=== PATIENT | male | born 1955 | race Caucasian/White ===

== ENCOUNTER → 2017-08-27 | Outpatient (CLI) | payer MEDICARE ==
[~2017-08-27] MED LIST: BUPR300T PO; CARI350T19 PO; CLON0.5T PO; DONE10TA14 PO; DONE10TA7 PO; DULO1CAP3 PO; FLON0.053; FLUT50SP EACH NARE; GABA400C5 PO; HYDR-2768 PO; HYDR-3129 PO; HYDR-3583 PO; HYDR25TA5 PO; LANS30 OR; LISI2.5T3 PO; LISI30TA4 PO; MAXA10TA2 PO; PANT40TA3 PO; PAXI20TA PO; PROP20TA3 PO; PROP40TA3 PO; REFRDRO EACH EYE; SOMA350T PO; TAMS0.4C4 PO; TIOT18I INH; TRAZ1TAB14 PO
[2017-08-27 09:45] LABS: AUTOMATED NEUTROPHIL # 3.5 TH/MM3 (1.8-7.7); BASOPHIL % 0.7 % (0.0-2.0); EOSINOPHIL # 0.2 TH/MM3 (0-0.4); EOSINOPHIL % 3.3 % (0.0-4.0); HEMATOCRIT 40.5 % (39.0-51.0); LYMPH % 28.8 % (9.0-44.0); LYMPHOCYTE # 1.7 TH/MM3 (1.0-4.8); MEAN CELL VOLUME 94.1 FL (80.0-100.0); MEAN CORPUSCULAR HEMOGLOBIN 32.4 PG (27.0-34.0); MEAN CORPUSCULAR HGB CONC 34.5 % (32.0-36.0); MONO % 7.8 % (0.0-8.0); MONOCYTE # 0.5 TH/MM3 (0-0.9); NEUT % 59.4 % (16.0-70.0); PLATELET COUNT 204 TH/MM3 (150-450); RED BLOOD COUNT 4.31 MIL/MM3 (4.50-5.90)
[2017-08-27 09:50] LABS: PROTHROMBIN TIME - PATIENT 10.5 SEC (9.8-11.6)
[2017-08-27 10:14] LABS: ALBUMIN 3.4 GM/DL (3.4-5.0); ALT (GPT) 45 U/L (12-78); AST (GOT) 30 U/L (15-37); BICARBONATE 27.6 MEQ/L (21.0-32.0); BLOOD UREA NITROGEN 13 MG/DL (7-18); CALCIUM 8.5 MG/DL (8.5-10.1); CHLORIDE 110 MEQ/L (98-107); CREATININE 0.84 MG/DL (0.60-1.30); GLOMERULAR FILTRATION RATE 92 ML/MIN (>89); GLUCOSE,FASTING 91 MG/DL (74-99); SODIUM (NA) 143 MEQ/L (136-145)
[2017-08-27 10:16] LABS: ALKALINE PHOSPHATASE 76 U/L (45-117); TOTAL BILIRUBIN ADULT 0.8 MG/DL (0.2-1.0)
[2017-08-27 10:25] LABS: BILIRUBIN, URINE NEG (NEG); BLOOD, URINE NEG (NEG); GLUCOSE,URINE NEG (NEG); KETONE, URINE NEG (NEG); MUCUS URINE MANY /lpf (OCC); NITRITE,URINE NEG (NEG); URINE COLOR YELLOW (YELLW/STRAW); URINE LEUKOCYTE ESTERASE NEG (NEG)
== END ==
LOC: CPRE 08:36
PROVIDERS: ATTEND Surgery
DX: Z01.812 Encounter for preprocedural laboratory examination (principal)
CPT/HCPCS: 36415; 80053; 81001; 85025; 85610; 85730

== ENCOUNTER 2017-09-06 10:44 | Inpatient (IN) | payer MEDICARE ==
--- NOTE | 2017-09-03 16:00 | MH ---
cc: Jonn FALL M.D. DATE OF ADMISSION 09/06/2017 ADMISSION DIAGNOSIS Osteoarthritic degeneration right knee now being admitted for right total knee arthroplasty. HISTORY OF THE PRESENT ILLNESS This is pleasant 62-year-old male is being admitted today for right total knee arthroplasty due to severe painful osteoarthritic degeneration. PAST MEDICAL HISTORY Other past history: 1. The patient has been long-term history of pain medications for fibromyalgia and back pain and currently is taking Medical marijuana, hydrocodone, trazodone and lisinopril. 2. Also has a history of anxiety. 3. Hypertension for which he takes lisinopril. REVIEW OF SYSTEMS Previous review of symptoms noncontributory. FAMILY HISTORY Noncontributory. PAST SURGICAL HISTORY Past surgery includes: 1. Surgery on his eyes. 2. Surgery on his hands. 3. Surgery on his finger. 4. His upper back. 5. Hernia. 6. And his nose. SOCIAL HISTORY He does not smoke. He does not drin. ALLERGIES NO KNOWN ALLERGIES. PHYSICAL EXAMINATION GENERAL: We find a 62-year-old male well-developed, well-nourished, alert and oriented times three complaining of pain in his right knee. VITAL SIGNS: Blood pressure 150/82, pulse 57 and regular, respirations 16, temperature 97.8, pulse oximetry 96% on room air. HEENT: Eyes PERRL, EOMI. Ears, nose, mouth clear. NECK: Supple. LUNGS: Clear. HEART: Regular rate. ABDOMEN: Soft. Positive bowel sounds and nontender. EXTREMITIES: Reveal his right knee to have crepitance on range of motion, lacks 5 degrees short of full extension. He is neurovascularly intact to his toes. IMPRESSION At this time is severe, painful, osteoarthritic degeneration of the right knee. PLAN Admission for right total knee arthroplasty today. The patient given a prescription for postoperative pain and anticoagulation control in the office and plans on going home after surgical stay in the hospital. Jonn Fall MD JRPrincess/KK /3:48 PM /3:41 PM
[~2017-09-06] VITALS: Ht 180.3 cm; Wt 104.0 kg
[~2017-09-06 10:44] MED LIST changes: -BUPR300T PO; -CARI350T19 PO; -CLON0.5T PO; -DONE10TA14 PO; -FLON0.053; -HYDR-2768 PO; -HYDR-3129 PO; -LANS30 OR; -LISI2.5T3 PO; -MAXA10TA2 PO; -PAXI20TA PO; -PROP20TA3 PO; -SOMA350T PO; -TIOT18I INH
[2017-09-06] MEDS ORDERED: ceFAZolin 2 GM PREMIX 50 ML IV SCH (11:15)
[2017-09-06] MEDS ORDERED: VANCOMYCIN 1000 MG/NS 250 ML (for <70 kg) IV SCH ×2 (11:15)
[2017-09-06] MEDS ORDERED: CHLORHEXIDINE GLUCONATE 4% SOLN 120 ML BTL TOPICAL SCH (11:15)
[2017-09-06] MEDS ORDERED: CHLORHEXIDINE GLUCONATE 2 % 1 PACK (2 CLOTHS) TOPICAL PRN (11:30)
[2017-09-06] MEDS ORDERED: LACTATED RINGER'S 1000 ML IV PRN (11:30)
[2017-09-06] MEDS ORDERED: METOPROLOL TARTRATE 25 MG TAB PO PRN (11:30)
[2017-09-06] MEDS ORDERED: POVIDONE IODINE 5% (ANTISEPSIS KIT) 4 APPLICATIONS EACH NARE PRN (11:30)
[2017-09-06] MEDS ORDERED: SODIUM CHLORID 0.9% 500 ML IV PRN (11:30)
[2017-09-06] MEDS ORDERED: TRANEXAMIC ACID INJ 0 MG in SODIUM CHLORIDE 0.9% INJ 100 ML IV SCH (12:00)
[2017-09-06] MEDS ORDERED: GLYCOPYRROLATE 1 MG/5 ML SYRINGE IV PUSH ONE (12:00)
[2017-09-06] MEDS ORDERED: ePHEDrine/NS 25 MG/5 ML SYRINGE IV ONE (12:00)
[2017-09-06] MEDS ORDERED: TRANEXAMIC ACID IV SCH ×2 (12:00→15:00)
[2017-09-06] MEDS ORDERED: PHENYLEPHRINE HCL 10 MG/ML VIAL IV ONE (12:00)
[2017-09-06] MEDS ORDERED: BUPIVACAINE LIPOSO PF 1.3% INJ 20 ML in SODIUM CHLORIDE 0.9% INJ 100 ML P-ARTICULR SCH (12:00)
[2017-09-06] MEDS ORDERED: ONDANSETRON HCL 4 MG/2 ML VIAL IV ONE (12:00)
[2017-09-06] MEDS ORDERED: LIDOCAINE HCL 1% PF 5 ML SYRINGE OTHER ONE (12:00)
[2017-09-06] MEDS ORDERED: SODIUM CHLORIDE 0.9% IV SCH ×2 (12:00→15:00)
[2017-09-06] MEDS ORDERED: DEXAMETHASONE SOD PHOS 4 MG/ML VIAL IV ONE (12:00)
[2017-09-06] MEDS ORDERED: NALOXONE HCL 0.4 MG/ML AMP IV PUSH PRN (12:00)
[2017-09-06] MEDS ORDERED: Post-op Orders (for Pharmacy) XX ONE (12:00)
[2017-09-06] MEDS ORDERED: LACTATED RINGER'S 1000 ML INJ 2,000 ML IV ONE (12:00)
[2017-09-06] MEDS ORDERED: PROPOFOL 200 MG/20 ML AMP IV ONE (12:00)
[2017-09-06] MEDS ORDERED: PHENYLEPH/NS 1000 MCG/10 ML SYR IV ONE (12:00)
[2017-09-06] MEDS ORDERED: ONDANSETRON HCL 4 MG/2 ML VIAL IVP PRN (12:00)
--- NOTE | 2017-09-06 12:06 | HHI.FF ---
Face to Face Verification Diagnosis: (1) Status post total right knee replacement using cement Physical Therapy Gait training Knee: Total knee, Protocol: Right, Gait training, Full weight bearing Canvas Knee Splint: When in bed & 2 pillows btw thighs Nursing RN: 3 days/week x 2 weeks Nursing: Dressing changes Dressing Changes: Daily dressing change, 4x4s, Gauze, Paper tape I have seen patient Perez Ramirez on 09/06/17. My clinical findings support the need for the requested home health care services because: Limited ability to care for self High risk of falls I certify that my clinical findings support that this patient is homebound because: Unsteady gait/balance Jonn Fall MD Sep 06, 2017 12:06
[2017-09-06] MEDS ORDERED: ADJUSTABLE COMM1 MIS (12:08)
[2017-09-06] MEDS ORDERED: CPMMACHINE (12:08)
[2017-09-06] MEDS ORDERED: WALKER WHEELS/F1 MIS (12:08)
[2017-09-06] MEDS ORDERED: DEXAMETHASONE SOD PHOS 20 MG/5 ML VIAL ONE (12:21)
[2017-09-06] MEDS ORDERED: DEXAMETHASONE SOD PHOS 20 MG/5 ML VIAL IV PUSH SCH (13:00)
[2017-09-06] MEDS ORDERED: BUPIVACAINE LIPOSOME PF 1.3% 20 ML VIAL ONE (13:03)
--- NOTE | 2017-09-06 13:47 | PD.CONS ---
HPI Service [facility] Hospitalists Consult Requested By Dr. Fall Reason for Consult Postoperative medical management Primary Care Physician Kavitha Thomson Jr, MD Diagnoses: (1) Osteoarthritis of right knee History of Present Illness This 62-year-old male patient with past medical history which includes hypertension, chronic pain including fibromyalgia and back pain. Patient is currently a medical marijuana for his chronic pain, followed by Dr. Villa. Patient presented to the hospital on 09/06/2017 underwent a right total knee arthroplasty with Dr. Fall. We've been consulted for assistance with postoperative medical management. Patient groggy post anesthesia information gathered from patient and prior charting. Patient endorses post-operative pain. He has just been medicated for pain. Patient denies N/V, SOB or chest pain. 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, cluster a personality disorder, PTSD, Past Surgical History Cervical fusion, lumbar fusion, cataract surgery, colonoscopy with polypectomy, Lasix surgery left eye, EGD, foot surgery, hand surgery, inguinal hernia repair , decompression of medial nerve, umbilical hernia repair Reported Medications Trazodone (Trazodone HCl) 150 Mg Tablet 150 Mg PO HS Tamsulosin (Tamsulosin HCl) 0.4 Mg Cap 0.4 Mg PO EVERY OTHER DAY Refresh Opth Drops (Polyvinyl Alcohol-Povidone Opth Drops) 1.4-0.6% Drops 1-2 Drop EACH EYE PRN PRN Propranolol (Propranolol HCl) 40 Mg Tab 40 Mg PO Q8HR Pantoprazole (Pantoprazole Sodium) 40 Mg Tab 40 Mg PO DAILY Lisinopril 30 Mg Tab 30 Mg PO DAILY Hydrocodone-Acetaminophen 10-325 mg Tab 1 Tab PO Q6H PRN Hydrochlorothiazide 25 Mg Tab 25 Mg PO DAILY Gabapentin 400 Mg Cap 4 Tab PO HS Fluticasone Nasal [place]ison 50 Mcg/Act Naspr 50 Mcg EACH NARE BID 50 mcg/spray Duloxetine DR (Duloxetine HCl) 60 Mg Capdr 60 Mg PO DAILY Donepezil 10 Mg Tab 10 Mg PO HS Allergies: Coded Allergies: [place] Dust (Verified Allergy, Unknown, 09/06/17) mirtazapine (Verified Allergy, Unknown, 09/06/17) pollen extracts (Verified Allergy, Unknown, 09/06/17) Active Ordered Medications Current Medications Medications (Trade) Dose Ordered Sig/Ricardo Route Start Time Stop Time Status Last Admin (Hibiclens 4% Top Soln) 1 applic ONCE TOPICAL 09/06/17 11:15 09/09/17 11:14 Cefazolin Sodium/ Dextrose 50 ml @ 100 mls/hr [employer] IV 09/06/17 11:15 09/09/17 11:14 Vancomycin HCl 1000 mg/Sodium Chloride 250 ml @ 250 mls/hr [employer] IV 09/06/17 11:15 09/09/17 11:14 Tranexamic Acid 1040 mg/Sodium Chloride 110.4 ml @ 200 mls/hr ONCE IV 09/06/17 12:00 09/06/17 18:00 Tranexamic Acid 1040 mg/Sodium Chloride 110.4 ml @ 200 mls/hr ONCE IV 09/06/17 15:00 09/06/17 21:00 Bupivacaine Liposome 20 ml/ Sodium Chloride 120 ml @ 240 mls/hr ONCE P-ARTICULR 09/06/17 12:00 09/06/17 18:00 Lactated Ringer's 1,000 ml @ 30 mls/hr Q24H PRN IV 09/06/17 11:30 09/09/17 11:29 Sodium Chloride 500 ml @ 30 mls/hr [id number] PRN IV 09/06/17 11:30 09/09/17 11:29 (Lopressor) 25 mg [employer] PRN PO 09/06/17 11:30 09/09/17 11:29 09/06/17 12:00 (Betadine 5% Antisepsis Kit) 1 applic [employer] PRN EACH NARE 09/06/17 11:30 09/09/17 11:29 (Chlorhexidine 2% Cloth) 3 pack [employer] PRN TOPICAL 09/06/17 11:30 09/09/17 11:29 (Aricept) 10 mg HS PO 09/06/17 21:00 (Cymbalta Dr) 60 mg DAILY PO 09/07/17 09:00 (Flonase Valeriy Spr) 1 spray BID EACH NARE 09/06/17 21:00 (Neurontin) 1,600 mg HS PO 09/06/17 21:00 UNV (Hydrodiuril) 25 mg DAILY PO 09/07/17 09:00 (Protonix) 40 mg DAILY PO 09/07/17 09:00 (Refresh Classic 1.4-0.6% Pf Opth Soln) 2 drop DAILY PRN EACH EYE 09/06/17 12:00 UNV (Inderal) 40 mg Q8HR PO 09/06/17 14:00 UNV (Flomax) 0.4 mg EVERY OTHER DAY PO 09/08/17 09:00 UNV Non-Formulary Medication 30 mg DAILY PO 09/07/17 09:00 UNV Non-Formulary Medication 150 mg HS PO 09/06/17 21:00 UNV Lactated Ringer's 1,000 ml @ 80 mls/hr [id number] IV 09/06/17 11:59 UNV Cefazolin Sodium 1000 mg/Sodium Chloride 100 ml @ 200 mls/hr Q6H IV 09/06/17 12:00 09/07/17 00:29 UNV (Post-op Orders (for Pharmacy)) STAT ONCE XX 09/06/17 12:00 09/06/17 12:01 UNV (Tylenol) 650 mg Q6H PRN PO 09/06/17 12:00 UNV Tranexamic Acid / Sodium Chloride 100 ml @ 200 mls/hr UNSCH IV 09/06/17 12:00 09/06/17 12:29 UNV (Theragran M Tab) 1 tab BID PO 09/07/17 21:00 11/06/17 20:59 UNV (Zofran Inj) 4 mg Q6H PRN IVP 09/06/17 12:00 UNV (Colace) 100 mg BID PO 09/07/17 21:00 UNV (Bacitracin Oint Packet) 0.9 gm UNSCH X1 PRN TOP 09/08/17 10:15 09/10/17 10:14 UNV (Narcan Inj) 0.4 mg UNSCH PRN IV PUSH 09/06/17 12:00 UNV (Benadryl Inj) 25 mg Q6H PRN IV PUSH 09/06/17 12:00 UNV (Eliquis) 2.5 mg BID PO 09/06/17 21:00 UNV (Morphine Inj) 4 mg Q3H PRN IV PUSH 09/06/17 12:00 UNV (Percocet 10-325 Mg) 1 tab Q4H PRN PO 09/06/17 12:00 UNV (Percocet 10-325 Mg) 2 tab Q4H PRN PO 09/06/17 12:00 UNV (Decadron Inj) 10 mg [employer] IV PUSH 09/06/17 13:00 09/07/17 12:59 Family History 67-year-old brother has prostate throat cancer Father in his 70s with dementia Social History Denies EtOH use or illicit drug use however patient does take medical THC Physical Exam Vital Signs Vital Signs Date Time Temp Pulse Resp B/P (MAP) Pulse Ox O2 Delivery O2 Flow Rate FiO2 09/06/17 11:44 98.0 74 16 158/91 (113) 97 Physical Exam GENERAL: This is a 62 year old male patient, well-developed patient, in no apparent distress. SKIN: Postoperative dressing dry and intact HEAD: Atraumatic. Normocephalic. No temporal or scalp tenderness. EYES: Extraocular motions intact. No scleral icterus. No injection or drainage. CARDIOVASCULAR: Regular rate and rhythm RESPIRATORY: Clear to auscultation. Breath sounds equal bilaterally. GASTROINTESTINAL: Abdomen soft, non-tender, nondistended. MUSCULOSKELETAL: Extremities without clubbing, cyanosis, or edema. No joint tenderness, effusion, or edema noted. No calf tenderness. Negative Homans sign bilaterally. NEUROLOGICAL: Awake and alert. No focal deficits appreciated. Five out of 5 muscle strength in all muscle groups, with the exception of postoperative right lower extremity. Normal speech. Assessment and Plan Problem List: (1) Osteoarthritis of right knee ICD Codes: M17.11 - Unilateral primary osteoarthritis, right knee Status: Acute Plan: Osteoarthritis right knee Patient underwent a right total knee arthroplasty with Dr. Fall 09/06/2017 Postoperative pain management with [employer] MANAGER Anticoagulation with Eliquis 2.5 mg by mouth twice a day per orthopedic surgery Physical therapy consulted COPD Does not take inhalers at home will order Duonebs needed while in the hospital Incentive spirometer Hypertension Continue patient's home lisinopril 30 mg by mouth daily and propranolol 40 mg by mouth every 8 hours BPH continue patient's home tamsulosin Depression/anxiety Duloxetine 60 mg by mouth daily Trazodone 150 mg by mouth daily at bedtime GERD Continue patient's home pantoprazole 40 mg by mouth daily (2) Chronic pain ICD Codes: G89.29 - Other chronic pain Status: Chronic (3) COPD (chronic obstructive pulmonary disease) ICD Codes: J44.9 - Chronic obstructive pulmonary disease, unspecified Status: Chronic (4) HTN (hypertension) ICD Codes: I10 - Essential (primary) hypertension Status: Chronic (5) BPH (benign prostatic hyperplasia) ICD Codes: N40.0 - Benign prostatic hyperplasia without lower urinary tract symptoms Status: Chronic Assessment and Plan Patient examined. Assessment and plan formulated with Sylvia Loera PA-C. I agree with the above. Sylvia Loera Sep 06, 2017 13:47 Ricky Fofana MD Sep 06, 2017 22:41
[2017-09-06] MEDS ORDERED: ACETAMINOPHEN 325 MG TAB PO PRN (14:00)
[2017-09-06] MEDS ORDERED: RESP: ALBUTEROL 2.5 MG/IPRATROPIUM 0.5 MG NEB (PRN) NEB (14:00)
[2017-09-06] MEDS ORDERED: diphenhydrAMINE HCL 50 MG/ML VIAL IV PUSH PRN (14:00)
[2017-09-06] MEDS: PROPRANOLOL HCL 40 MG TAB PO SCH ×2 (14:00→22:41)
[2017-09-06] MEDS ORDERED: ceFAZolin INJ 1,000 MG VIAL ONE (14:12)
[2017-09-06] MEDS ORDERED: DEXAMETHASONE SOD PHOS 4 MG/ML VIAL ONE (14:44)
[2017-09-06] MEDS ORDERED: POLYVINYL ALC-POVIDONE 1.4/0.6% PF OPTH SOLN 0.4 ML EACH EYE PRN (15:00)
[2017-09-06] MEDS ORDERED: MIDAZOLAM HCL 2 MG/2 ML VIAL ONE ×2 (15:44→16:53)
[2017-09-06] MEDS ORDERED: ACETAMINOPHEN 1000 MG/100 ML 100 ML IV ONE (15:44)
[2017-09-06] MEDS ORDERED: DO NOT ADM ANY ANTICOAGULANT DRUGS PRN (16:12)
[2017-09-06] MEDS ORDERED: ROPIVACAINE 0.5% PF INJ 30 ML VIAL ONE (16:19)
--- NOTE | 2017-09-06 16:28 | HHI.PR ---
Immediate Post Op Note Procedure Date: Sep 06, 2017 Pre Op Diagnosis: Osteoarthritic degeneration right knee Post Op Diagnosis: Osteoarthritic degeneration right knee Surgeon: Luiz Fall MD Pediatrics Teacher(s): Abby KAIS[facility] Procedure: Right Total Knee Arthroplasty Complications: none Specimen(s) removed: none Estimated blood loss: 100cc Anesthesia: General Drains: None IVF Urinary Output (mLs): 0 (no roy) Tourniquet time (min at mmHg) 49 mins at 300 mmHg Patient to: PACU Patient Condition: Good Implant/Devices: SEE IMPLANT LOG (if applicable) Date/Time of Procedure: SEE SURGICAL CARE RECORD Abby Allison Sep 06, 2017 16:28
[2017-09-06] MEDS ORDERED: *MEPERIDINE 25 MG INJ VIAL PERIprocedural Use ONLY ONE (16:39)
[2017-09-06] MEDS: LACTATED RINGER'S 1000 ML INJ 1,000 ML IV SCH (17:00)
--- NOTE | 2017-09-06 17:12 | RADRPT ---
EXAM DATE/TIME: 09/06/2017 16:49 [facility] COMPARISON: No previous studies available for comparison. INDICATIONS : Post right knee arthroplasty MEDICAL HISTORY : None. SURGICAL HISTORY : None. ENCOUNTER: Initial ACUITY: 1 day PAIN SCORE: Non-responsive. LOCATION: Right Knee FINDINGS: Postsurgical features of right knee arthroplasty. Arthroplasty components are in anatomic alignment. No significant acute bony fracture. Immediate postsurgical soft tissue features. CONCLUSION: 1. Status post right knee arthroplasty in anatomic alignment without significant acute bony fracture. Arcadio Resendiz MD on September 06, 2017 at 17:10 Board Certified Radiologist. This report was verified electronically.
[2017-09-06] MEDS: oxyCODONE/ACETAMINOPHEN 10 MG/325 MG TAB PO PRN ×2 (17:42→22:35)
[2017-09-06 20:00] VITALS: BP 158/88; PULSE 77; RESP 16; TEMP 97.5; O2SAT 97
[2017-09-06] MEDS: MORPHINE SULFATE 4 MG/ML INJ IV PUSH PRN (20:52)
[2017-09-06] MEDS: DONEPEZIL HCL 5 MG TAB PO SCH (21:04)
[2017-09-06] MEDS: GABAPENTIN 400 MG CAP PO SCH (21:04)
[2017-09-06] MEDS: traZODone HCL 50 MG TAB PO SCH (21:04)
[2017-09-06] MEDS: FLUTICASONE PROPIONATE 50 MCG/ACT 16 GM NASAL SPRAY EACH NARE SCH (21:08)
[2017-09-07] VITALS (7 sets, daily range): BP systolic 150–166; BP diastolic 77–93; PULSE 59–70; RESP 16–18; TEMP 95.7–99.4; O2SAT 93–95
[2017-09-07] MEDS: oxyCODONE/ACETAMINOPHEN 10 MG/325 MG TAB PO PRN ×5 (03:12→23:21)
[2017-09-07] MEDS: PROPRANOLOL HCL 40 MG TAB PO SCH ×3 (05:41→21:40)
[2017-09-07] MEDS: LACTATED RINGER'S 1000 ML INJ 1,000 ML IV SCH ×2 (07:00→12:59)
[2017-09-07 07:16] LABS: HEMATOCRIT 37.5 % (39.0-51.0)
[2017-09-07] MEDS: MORPHINE SULFATE 4 MG/ML INJ IV PUSH PRN ×3 (08:19→15:58)
[2017-09-07] MEDS: PANTOPRAZOLE SOD 40 MG DELAYED RELEASE TAB PO SCH (08:20)
[2017-09-07] MEDS: DULoxetine HCl DR 60 MG CAP PO SCH (08:20)
[2017-09-07] MEDS: LISINOPRIL 10 MG TAB PO SCH (08:20)
[2017-09-07] MEDS: HYDROCHLOROTHIAZIDE 25 MG TAB PO SCH (08:20)
[2017-09-07] MEDS: FLUTICASONE PROPIONATE 50 MCG/ACT 16 GM NASAL SPRAY EACH NARE SCH ×2 (08:21→21:44)
--- NOTE | 2017-09-07 11:28 | PD.ORT.PN ---
Subjective Subjective Remarks Pt painful today. Objective Vitals Vital Signs Date Time Temp Pulse Resp B/P (MAP) Pulse Ox O2 Delivery O2 Flow Rate FiO2 09/07/17 09:29 93 21 09/07/17 08:00 96.6 62 18 150/77 (101) 94 09/07/17 04:00 97.3 64 16 156/93 (114) 93 09/07/17 00:00 97.7 70 16 151/90 (110) 93 09/06/17 20:57 16 09/06/17 20:00 97.5 77 16 158/88 (111) 97 09/06/17 17:00 98.4 65 13 157/85 (109) 97 Nasal Cannula 2 09/06/17 16:45 70 14 122/59 (80) 97 Simple Mask 6 09/06/17 16:30 73 15 158/80 (106) 100 Simple Mask 6 09/06/17 16:15 74 22 160/81 (107) 96 Simple Mask 6 09/06/17 16:12 98.4 76 20 193/89 (123) 95 Simple Mask 6 09/06/17 11:44 98.0 74 16 158/91 (113) 97 I/O 09/06/17 09/06/17 09/06/17 09/07/17 09/07/17 09/07/17 07:00 15:00 23:00 07:00 15:00 23:00 Intake Total 1612 ml 2000 ml Output Total 100 ml 1900 ml Balance 1512 ml 100 ml Intake Oral 2000 ml IV Total 1612 ml Output Urine Total 1900 ml Estimated Blood Loss 100 ml # Voids 4 Result Diagram: 09/07/17 0623 Imaging Last 24 hours Impressions Knee X-Ray 09/06/17 1159 Signed Impressions: Service Date/Time: Wednesday, September 06, 2017 16:49 - CONCLUSION: 1. Status post right knee arthroplasty in anatomic alignment without significant acute bony fracture. Arcadio Resendiz MD Objective Remarks Dressing dry and intact. in bed at present time. No calf tenderness. Assessment & Plan Ortho Post Op Day #: 1 Problem List: Assessment and Plan Cont PT and wound care. Flexeril for spasms. Jonn Fall MD Sep 07, 2017 11:28
--- NOTE | 2017-09-07 12:23 | MP ---
cc: Jonn JIMENEZ M.D. DATE OF SURGERY: 09/06/2017 PREOPERATIVE DIAGNOSIS: Osteoarthritic degeneration right knee. POSTOPERATIVE DIAGNOSIS: Osteoarthritic degeneration right knee. OPERATION: Right total knee arthroplasty using consensus components, size 5 femur, 4 tibia, 10 insert and size 2 patella with two batches of Depuye cement. SURGEON: Jonn Jimenez MANAGER TECHNICAL SUPPORT: AWILDA Schroeder ANESTHESIA: General intubation and block. PROCEDURE: After successful induction of anesthesia, the patient is placed on the operating room table in the supine position. The knee is prepped and draped in the usual manner. A tourniquet is inflated at the upper thigh and set to 300 mmHg pressure after exsanguination of the lower extremity. A longitudinal incision is made extending from 3 inches proximal to the superior pole of the patella, across the patella in longitudinal fashion, and down past the insertion of the tibial tubercle into the proximal tibia. The incision is carried down through subcutaneous tissue along the medial aspect of the patella and retinaculum, down through the capsule to expose the knee joint. The patella and patellar tendon are freed up enough to allow the patella to be inverted and retracted off the lateral side of the knee joint. The knee joint is left exposed. Small osteophytes are removed. All soft tissue is removed to allow proper position of the femoral and tibial cutting jig guide. The first femoral jig is then inserted along the distal end of the femur after first measuring to decide whether this is a small, medium, or large component. The notch is then drilled and the tibial cutting guide inserted into the femoral cutting guide, along with the ankle brace to allow for proper measurement of the tibial cutting surface that needed to be resected. Pins are inserted into the tibial cutting jig and femoral cutting jig to hold them in place. An oscillating saw is then used to resect the surface of the tibia. The surface of the tibia is then completely removed using sharp and blunt dissection. The anterior and posterior cuts of the femur are then made as well using an oscillating saw through the cutting guide. All guides are then removed and the varus/valgus angulation cutting guide applied to the femur for proper measurement of the proper amount of valgus. The anterior cutting guide for the femur is then inserted at the anterior femoral cuts made. Next, the first block trial is inserted into the femur to allow for proper condyle drill holes to be made which are then made followed by removal of the bone between the condyles using an oscillating saw as well as the bone removed at the most posterior surface of the condyle. After this, this guide is removed and the chamfer cuts made using the chamfer cutting guide from both anterior and posterior. Next, the femoral trial is then inserted, the tibial surface reflected anterior to expose the tibial surface and a tibial stem guide is inserted after first measuring for a standard, standard plus, large, or large plus surface to be used. After the stem is impacted the trial tibial surface is applied followed by the trial meniscal components. After full range of motion is found with the appropriate length meniscal components varying the patella is prepared by resecting the posterior aspect of the patella using an oscillating saw, inserting a trial. The trial is then removed and the cruciate cutting guide applied using the bur to cut the cruciate cuts. After cruciate cuts are made all trials are removed. The wound is irrigated copiously with antibiotic solution and Water Pik and the actual components inserted into place using the aforementioned components. After the cement has hardened and the components are found to have full range of motion with no instability, the tourniquet is deflated, total tourniquet time being 49 minutes at 300 mmHg pressure. The wound again is irrigated copiously with antibiotic solution, meticulous hemostasis achieved. 120 cc of Exparel used around the knee joint for extra pain control, deep fascia approximated with running #2 quill, subcutaneous tissue approximated using interrupted running 2-0 and 3-0 Monocryl sutures, Steri-Strips sterile dressing and knee immobilizer. No drain utilized. Estimated blood loss 100 cc. Sponge count correct. The patient of procedure well left the operating room in satisfactory condition and Mackenzie KAISER was present during the entire procedure to include patient positioning and the procedure the medical necessity of nurse practitioner licensed investment sales assistant was indicated this case due to the surgical complexity of the case itself and during the surgical case the technical recruiter was working the back table while my assistant to the director AWILDA was directly assisting me. JMD BAIRON Barrett/lalit /3:43 PM /12:07 PM
[2017-09-07] MEDS: CYCLOBENZAPRINE HCL 10 MG TAB PO PRN ×2 (13:07→23:20)
[2017-09-07] MEDS: APIXABAN 2.5 MG TABLET PO SCH ×2 (15:00→21:40)
[2017-09-07] MEDS: DONEPEZIL HCL 5 MG TAB PO SCH (21:40)
[2017-09-07] MEDS: traZODone HCL 50 MG TAB PO SCH (21:40)
[2017-09-07] MEDS: DOCUSATE SODIUM 100 MG CAP PO SCH (21:40)
[2017-09-07] MEDS: MULTIVITAMINS/MINERALS THERAPEUTIC TAB PO SCH (21:40)
[2017-09-07] MEDS: GABAPENTIN 400 MG CAP PO SCH (21:41)
[2017-09-08] VITALS: BP 151/76; PULSE 76; RESP 20; TEMP 98.8; O2SAT 92
[2017-09-08] MEDS: LACTATED RINGER'S 1000 ML INJ 1,000 ML IV SCH (01:29)
[2017-09-08] MEDS: MORPHINE SULFATE 4 MG/ML INJ IV PUSH PRN (03:55)
[2017-09-08 04:00] VITALS: BP 131/74; PULSE 70; RESP 20; TEMP 98.2; O2SAT 92
[2017-09-08] MEDS: oxyCODONE/ACETAMINOPHEN 10 MG/325 MG TAB PO PRN ×2 (04:36→09:19)
[2017-09-08] MEDS: PROPRANOLOL HCL 40 MG TAB PO SCH (06:18)
[2017-09-08] MEDS: MULTIVITAMINS/MINERALS THERAPEUTIC TAB PO SCH (07:44)
[2017-09-08] MEDS: LISINOPRIL 10 MG TAB PO SCH (07:45)
[2017-09-08] MEDS: DULoxetine HCl DR 60 MG CAP PO SCH (07:45)
[2017-09-08] MEDS: HYDROCHLOROTHIAZIDE 25 MG TAB PO SCH (07:45)
[2017-09-08] MEDS: APIXABAN 2.5 MG TABLET PO SCH (07:45)
[2017-09-08] MEDS: PANTOPRAZOLE SOD 40 MG DELAYED RELEASE TAB PO SCH (07:45)
[2017-09-08] MEDS: DOCUSATE SODIUM 100 MG CAP PO SCH (07:45)
[2017-09-08] MEDS: FLUTICASONE PROPIONATE 50 MCG/ACT 16 GM NASAL SPRAY EACH NARE SCH (07:46)
[2017-09-08 08:00] VITALS: BP 110/63; PULSE 60; RESP 18; TEMP 96.8; O2SAT 92
--- NOTE | 2017-09-08 08:02 | PD.ORT.PN ---
Subjective Subjective Remarks Pt painful today. Seems better than yesterday. Ready for dc. Objective Vitals Vital Signs Date Time Temp Pulse Resp B/P (MAP) Pulse Ox O2 Delivery O2 Flow Rate FiO2 09/08/17 04:00 98.2 70 20 131/74 (93) 92 09/08/17 04:00 18 09/08/17 00:00 98.8 76 20 151/76 (101) 92 09/07/17 20:31 21 09/07/17 20:00 99.4 66 18 162/82 (108) 93 09/07/17 16:00 95.7 63 18 166/86 (112) 93 09/07/17 11:58 96.1 59 18 162/91 (114) 95 09/07/17 09:29 93 21 I/O 09/07/17 09/07/17 09/07/17 09/08/17 09/08/17 09/08/17 07:00 15:00 23:00 07:00 15:00 23:00 Intake Total 2000 ml 600 ml 240 ml 240 ml Output Total 1900 ml 150 ml 400 ml Balance 100 ml 450 ml -160 ml 240 ml Intake Oral 2000 ml 600 ml 240 ml 240 ml Output Urine Total 1900 ml 150 ml 400 ml # Voids 4 2 1 1 # Bowel Movements 0 0 0 Result Diagram: 09/07/17 0623 Imaging Last 24 hours Impressions Knee X-Ray 09/06/17 1159 Signed Impressions: Service Date/Time: Wednesday, September 06, 2017 16:49 - CONCLUSION: 1. Status post right knee arthroplasty in anatomic alignment without significant acute bony fracture. Arcadio Resendiz MD Objective Remarks Dressing dry and intact. in bed at present time. No calf tenderness. Assessment & Plan Ortho Post Op Day #: 2 Problem List: Assessment and Plan Cont PT and wound care. Flexeril for spasms.Home today with HHC and PT. Jonn Fall MD Sep 08, 2017 08:02
--- NOTE | 2017-09-08 08:05 | HHI.DS ---
Discharge Summary Admission Date Sep 06, 2017 at 10:44 Discharge Date: Sep 08, 2017 Admitting Diagnosis Osteoarthritic Degeneration right knee Diagnosis: (1) Status post total right knee replacement using cement Diagnosis: Principal ICD Codes: Z96.651 - Presence of right artificial knee joint Brief History This is a 62 year old male patient CBC/BMP: 09/07/17 0623 Significant Findings Laboratory Tests Test 09/07/17 06:23 Hematocrit 37.5 % (39.0-51.0) PE at Discharge Dressing dry and intact. in bed at present time. No calf tenderness. Hospital Course Patient underwent a right total knee arthroplasty on day of admission. He received a course of prophylactic IV antibiotics and within 23 hours started on anticoagulation therapy. He remained afebrile vital signs stable began out of bed tolerating by mouth pain meds and physical therapy. He was discharged on second postoperative day in good condition with instructions for home healthcare and physical therapy and follow-up in the office. Pt Condition on Discharge: Good Discharge Disposition: Disch w/ Home Health Serv Discharge Instructions Diet Instructions: As Tolerated, No Restrictions Activities You Can Perform: Full Weight Bearing, Shower Only-No Bath Activities to Avoid: Bathing, Driving Jonn Fall MD Sep 08, 2017 08:05
[2017-09-08 08:32] VITALS: O2SAT 92
[2017-09-08] MEDS ORDERED: TAMSULOSIN HCL 0.4 MG CAP PO SCH (09:00)
[2017-09-08 09:12] LABS: HEMATOCRIT 34.6 % (39.0-51.0); HEMOGLOBIN 11.9 GM/DL (13.0-17.0)
[2017-09-08] MEDS: CYCLOBENZAPRINE HCL 10 MG TAB PO PRN (09:19)
[2017-09-08] MEDS ORDERED: BACITRACIN OINT 0.9 GM PKT TOP PRN (10:15)
== END 2017-09-08 11:41 | disposition home health service (06) | DRG 470 ==
LOC: HSDI 10:44 → N06B 17:41
PROVIDERS: ADMIT Surgery; ATTEND Surgery
PROC: 0SRC0J9 Replacement of Right Knee Joint with Synthetic Substitute, Cemented, Open Approach (ICD-10-PCS; principal; 2017-09-06 13:28)
DX: M17.11 Unilateral primary osteoarthritis, right knee (principal); I10 Essential (primary) hypertension; M25.761 Osteophyte, right knee; M79.7 Fibromyalgia; J44.9 Chronic obstructive pulmonary disease, unspecified; N40.0 Benign prostatic hyperplasia without lower urinary tract symptoms; K21.9 Gastro-esophageal reflux disease without esophagitis; F41.9 Anxiety disorder, unspecified; F32.9 Major depressive disorder, single episode, unspecified; F43.10 Post-traumatic stress disorder, unspecified; F60.89 Other specific personality disorders; Z98.1 Arthrodesis status
CPT/HCPCS: 73560; 76937; 85014; 85018; 86850; 86900; 86901; 94150; C1776; C9290; J0131; J0690; J1100; J2175; J2250; J2270; J2370; J2405; J2795; J3010; J3370; J7050; J7120; L1830